=== PATIENT | male | born 1995 | race Caucasian/White ===

== ENCOUNTER 2023-10-12 19:10 | Emergency (ER) | payer MEDICAID ==
[~2023-10-12] VITALS: Ht 177.8 cm; Wt 90.9 kg
[2023-10-13 05:47] VITALS: BP 118/62; PULSE 85; RESP 16; TEMP 98.6; O2SAT 98
== END 2023-10-13 05:48 | disposition home or self-care (01) ==
LOC: ER 19:11
DX: M71.22 Synovial cyst of popliteal space [Baker], left knee (principal); M79.89 Other specified soft tissue disorders
CPT/HCPCS: 93971; 99284; A6449

== ENCOUNTER 2024-02-15 22:13 | Emergency (ER) | payer MEDICAID ==
[~2024-02-15] VITALS: Ht 177.8 cm; Wt 100.7 kg
[2024-02-15 22:16] VITALS: BP 116/77; PULSE 86; RESP 14; O2SAT 98
[2024-02-15] MEDS ORDERED: CEPH-585 PO (22:59)
[2024-02-15] MEDS: cephalexin 250mg capsule PO ONE (23:06)
[2024-02-15 23:13] VITALS: TEMP 98.4
== END 2024-02-15 23:15 | disposition home or self-care (01) ==
LOC: ER 22:13
DX: M79.674 Pain in right toe(s) (principal); M79.89 Other specified soft tissue disorders; Z79.2 Long term (current) use of antibiotics
CPT/HCPCS: 99283

== ENCOUNTER 2024-06-26 20:33 | Emergency (ER) | payer MEDICAID ==
[~2024-06-26] VITALS: Ht 177.8 cm; Wt 107.3 kg
[~2024-06-26 20:33] MED LIST: CEPH-585 PO
[2024-06-26 20:37] VITALS: BP 138/85; PULSE 97; RESP 18; O2SAT 95
[2024-06-26] MEDS ORDERED: DULO60CA65 PO (21:01)
[2024-06-26] MEDS ORDERED: UPAD45TA (21:01)
[2024-06-26] MEDS ORDERED: TOPI25TA49 PO (21:01)
[2024-06-26] MEDS ORDERED: PROC10TA97 (21:01)
[2024-06-26] MEDS: amoxicillin 250mg capsule PO STA (21:35)
[2024-06-26] MEDS ORDERED: AMOX875T10 PO (21:48)
[2024-06-26] MEDS ORDERED: HYDR-3965 PO (21:48)
[2024-06-26 21:54] VITALS: TEMP 99
== END 2024-06-26 21:58 | disposition home or self-care (01) ==
LOC: ER 20:34
DX: K04.7 Periapical abscess without sinus (principal); Z79.2 Long term (current) use of antibiotics; Z79.899 Other long term (current) drug therapy
CPT/HCPCS: 99283